=== PATIENT | male | born 1975 | race African-American/Black ===

== ENCOUNTER 2022-11-28 18:26 | Emergency (ER) | payer OTHER ==
[2022-11-28] MEDS ORDERED: ACETAMINOPHEN 325 MG TABLET (FP) PO ONE (18:31)
[2022-11-28] MEDS ORDERED: ACETAMINOPHEN 325 MG TABLET (FP) ONE (18:41)
[2022-11-28 18:49] VITALS: BP 180/107; PULSE 103; RESP 18; TEMP 98.5; BMI 30.1
== END 2022-11-28 18:58 | disposition home or self-care (01) ==
LOC: FER 18:26
DX: S22.41XA Multiple fractures of ribs, right side, initial encounter for closed fracture (principal); R07.89 Other chest pain; R06.89 Other abnormalities of breathing; W13.2XXA Fall from, out of or through roof, initial encounter; Y99.0 Civilian activity done for income or pay
CPT/HCPCS: 99283-25